=== PATIENT | male | born 1980 | race Caucasian/White ===

== ENCOUNTER 2018-10-11 09:56 | Emergency (ER) | payer MEDICAID, SELFPAY ==
[2018-08-11 14:06] VITALS: BMI 25.0
[2018-10-11 09:57] VITALS: BP 109/67; PULSE 91; RESP 16; TEMP 36.4; O2SAT 98; BMI 22.4
--- NOTE | 2018-10-11 10:33 | ED.DCSUM_ITS ---
- ER Visit Summary Date of Service: 10/11/18 Chief Complaint: Eyes are swelling History of Present Illness: The patient is a 37 M who states his eyes been itchy for the last 3 days. He denies seasonal allergies or exposure to anything new. This morning he woke up with swelling to his eyelids. He denies vision change. He denies shortness of breath or throat tightness. Physical Examination: Vital signs unremarkable. Patient sitting in a bedside chair in no acute distress. Head and neck examination was mild eyelid edema without significant erythema. There is no eye injection. Extraocular movements are intact. TMs are clear bilaterally. Heart is regular rate and rhythm. Lung sounds are clear. Abdomen is soft and nontender. No other skin rash or lesions are noted. Test Results: [] Emergency Department Course and Treatment: Symptoms are consistent with an allergic reaction but I am unable to tell the patient what he may be reacting to. He will receive IM Kenalog and p.o. Benadryl. He will be given a p rescription for Benadryl. Treatment Plan: [] Disposition: Discharge Impression: Periorbital edema secondary to allergic reaction This note was generated with [employer] dictation software. It may contain incorrect words, spelling, and punctuation that were not noted in review of the chart prior to signing ED Disposition - Plan for ED Patient: Disposition: Home or Assisted Living Instructions: ED Allergic Reaction Local Other Prescriptions: DiphenhydrAMINE [Benadryl] 50 mg PO TID PRN PRN #30 capsule PRN Reason: Allergies Referrals: Suze Olson MD [STAFF PHYSICIAN] - As Needed
[2018-10-11] MEDS: DiphenhydrAMINE 25 MG Capsule 50 MG PO (10:43)
[2018-10-11] MEDS: Triamcinolone Acetonide 40 MG/ML Vial IM (10:43)
[2018-10-11 11:05] VITALS: BP 107/78; PULSE 78; RESP 15
== END 2018-10-11 11:06 | disposition home or self-care (01) ==
PROVIDERS: Emergency Provider Emergency Medicine
DX: H02.846 Edema of left eye, unspecified eyelid (principal); H02.843 Edema of right eye, unspecified eyelid; T78.40XA Allergy, unspecified, initial encounter; X58.XXXA Exposure to other specified factors, initial encounter; R56.9 Unspecified convulsions; M19.90 Unspecified osteoarthritis, unspecified site; Z72.0 Tobacco use
CPT/HCPCS: 96372; 99282

== ENCOUNTER 2018-10-13 16:58 | Emergency (ER) | payer MEDICAID, SELFPAY ==
[2018-10-13 17:00] VITALS: BP 122/72; PULSE 99; RESP 18; TEMP 36.4; O2SAT 100; BMI 22.6
--- NOTE | 2018-10-13 17:27 | ED.DCSUM_ITS ---
- ER Visit Summary Date of Service: 10/13/18 Chief Complaint: Facial rash History of Present Illness: The patient is a 37 M who states that on Friday began to have some dry skin around his periorbital region. Friday there was swelling and some redness. He was seen in the emergency department Friday given a prescription for Benadryl as well as Kenalog. States he has been getting worse. He notes that the redness and the itching and the swelling has extended out to the bilateral ears. Vision appears unaffected. He does not have a primary care physician. He denies any new soaps or lotions or detergents. He denies any essential poison beckie. He states that he is homeless. Physical Examination: Afebrile vital signs are stable Gen: Well-nourished well-developed Head: Normocephalic atraumatic Eyes: Perrl EOMI ENT: TMs clear no rhinorrhea moist mucous membranes Neck: Supple no lymphadenopathy no JVD nontender CVS: Regular rate rhythm no murmurs normal S1-S2 Respiratory: No distress clear to auscultation bilaterally chest nontender Abdomen: Soft nontender nondistended normal bowel sounds no masses Back: Nontender Extremity: Nontender no edema Skin: Normal color There is an urticarial-like rash in the periorbital region on the forehead and the bilateral ears. The eyes show no injection of the conjunctiva. Neuro: alert orientated ?3 CN II-XII intact normal strength sensation reflexes gait cerebellar Psych: Normal affect normal mood Emergency Department Course and Treatment: Patient will be started on a tapering dose of prednisone as well as Pepcid. I am going to refer him to dermatology. Impression: Allergic/contact dermatitis of the face This note was generated with [employer] dictation software. It may contain incorrect words, spelling, and punctuation that were not noted in review of the chart prior to signing ED Disposition - Plan for ED Patient: Disposition: Home or Assisted Living Instructions: ED Dermatitis Contact Prescriptions: Prednisone 10 mg PO DAILY #63 tab Famotidine [Pepcid] 20 mg PO BID #14 tab Referrals: Ana Cristina Trujillo [NON-STAFF] - (call office to arrange early follow up)
[2018-10-13 17:48] VITALS: BP 125/78; PULSE 78; RESP 16; O2SAT 98
== END 2018-10-13 17:49 | disposition home or self-care (01) ==
PROVIDERS: Emergency Provider Emergency Medicine
DX: L23.9 Allergic contact dermatitis, unspecified cause (principal); Z59.0 Homelessness; F17.220 Nicotine dependence, chewing tobacco, uncomplicated
CPT/HCPCS: 99282

== ENCOUNTER 2018-11-15 14:19 | Emergency (ER) | payer MEDICAID, SELFPAY ==
[2018-11-15 14:20] VITALS: BP 113/70; PULSE 73; RESP 16; TEMP 36.5; O2SAT 95; BMI 21.9
--- NOTE | 2018-11-15 14:39 | ED.VIS.GEN ---
History of Present Illness Informant: Patient Onset: Weeks Context: Gradual Onset Timing: Continuous Quality: Itching Location: Arms and legs Current Severity: Moderate Maximum Severity: Severe Worsened by: Being out in the heat Relieved by: Being in the cool air conditioned environment Associated Symptoms: Denies Narrative: 37-year-old male presents with a pruritic rash to both arms and legs that is been present for over a week. Worse when he is outside and he likely has poison beckie as he has been exposed to this. He has no constitutional symptoms. He is not having any pain. The rash is not located anywhere else. Denies any new medications or soaps or lotions or detergents. Denies contact with similar rash and another person. Prior similar symptoms: Yes Recent Illness/Hospitalization: No <Oj Pereira - Last Filed: 11/15/18 14:39> <Fernando Martinez - Last Filed: 11/15/18 14:49> Chief Complaint: Rash Past Medical History Prior records reviewed: Yes Surgical History: noncontributory Smoking Status: Current every day smoker <Oj Pereira - Last Filed: 11/15/18 14:39> <Fernando Martinez - Last Filed: 11/15/18 14:49> - Allergies and Home Meds Allergies/Adverse Reactions: Allergies tree nuts Allergy (Unknown, Uncoded 11/15/18 14:20) itching Primary Care Physician: Abilio Mcdonald MD [NON-STAFF] - Care Physician,No Primary [Primary Care Provider] - Review of Systems All systems negative except as indicated Skin: Reports: Rash <Oj Pereira - Last Filed: 11/15/18 14:39> Physical Exam Vital Signs/Narrative: Vital Signs Temp Pulse Resp BP Pulse Ox 11/15/18 14:20 97.7 F L 73 16 113/70 95 Inital Vital Signs reviewed: Yes General: Well nourished, Well developed, No Acute Distress Head: Normocephalic, Atraumatic Eyes: Perrl, EOMI ENT: Moist mucous membranes Neck: Supple, Nontender Cardiovascular: Regular rate, Regular rhythm Respiratory: No distress, CTA bilaterally, Chest nontender Abdomen: Soft, Nontender, Nondistended, Normal bowel sounds, No masses Back: Nontender Extremities: Nontender, No edema Skin: Normal color, Rash - Maculopapular rash both arms and legs, spares palms and soles, spares mucous membranes, no petechiae or purpura, no pustules or vesicles. Neurological: Alert, Oriented x3 <Oj Pereira - Last Filed: 11/15/18 14:39> Vital Signs/Narrative: Vital Signs Temp Pulse Resp BP Pulse Ox 11/15/18 14:20 97.7 F L 73 16 113/70 95 <Fernando Martinez - Last Filed: 11/15/18 14:49> Diagnostic/Tx/Re-eval - Medical Decision Making Rash on extremities. I am about with this patient with the physician export sales assistant Oj. Physical exam rash consistent with contact dermatitis on his arms and legs. Otherwise exam unremarkable. Diagnosis: Acute contact dermatitis secondary to poison beckie Prednisone daily. <Fernando Martinez - Last Filed: 11/15/18 14:49> ED Disposition <Oj Pereira - Last Filed: 11/15/18 14:39> <Fernando Martinez - Last Filed: 11/15/18 14:49> - Plan for ED Patient: Disposition: Home or Assisted Living Diagnosis: Contact dermatitis Instructions: DERMATITIS, Non-Specific Prescriptions: Prednisone 10 mg PO DAILY #63 tab Prescription Printed Referrals: Care Physician,No Primary [Primary Care Provider] - Abilio Mcdonald MD [NON-STAFF] -
--- NOTE | 2018-11-15 14:58 | ED.RN ---
during discharge patient states this is messed up, i want bloodwork. the doctor thinks its an allergic reaction and i think its a blood infection. i need an antibiotic. emotional support and education given. Pt denies wanting to wait and talk to again. Pt refuses the prednisone and refuses to take the prescription for prednisone. made aware.
== END 2018-11-15 15:00 | disposition home or self-care (01) ==
LOC: ED 14:53
PROVIDERS: Emergency Provider Physician Assistant Medical
DX: L23.7 Allergic contact dermatitis due to plants, except food (principal); F17.200 Nicotine dependence, unspecified, uncomplicated
CPT/HCPCS: 99282

== ENCOUNTER 2019-01-27 08:47 | Emergency (ER) | payer MEDICAID, SELFPAY ==
[2019-01-27 08:48] VITALS: BP 104/63; PULSE 86; RESP 14; TEMP 36.5; O2SAT 99; BMI 22.5
--- NOTE | 2019-01-27 09:00 | ED.VIS.LOWEX ---
History of Present Illness Chief Complaint: Lower Extremity Injury Detail of Chief Complaint: Left ankle injury Informant: Patient Occurred: Yesterday Mechanism/Context: - - Stepped in a hole and rolled his ankle Onset: Yesterday Context: Sudden Onset Quality of Pain: Aching, Throbbing Current Severity: Moderate Maximum Severity: Moderate Narrative: Patient presents with left ankle injury after stepping in a hole yesterday. He has been able to walk on it, but does have antalgic gait. He denies prior ankle or foot fracture. He denies any other injury from his fall. - Past Medical History (1) Scoliosis Status: Chronic (2) Arthritis Status: Chronic Past Medical History - Allergies and Home Meds Allergies/Adverse Reactions: Allergies tree nuts Allergy (Unknown, Uncoded 01/27/19 08:48) itching Primary Care Physician: Care Physician,No Primary [Primary Care Provider] - Prior records reviewed: Yes Past Medical History: - - Reviewed Surgical History: noncontributory Smoking Status: Current every day smoker Review of Systems General: Denies: Chills, Fever Eyes: Denies: Visual changes - bilaterally ENT: Denies: Bilateral ear pain Cardiovascular: Denies: Chest pain Respiratory: Denies: Dyspnea, Cough Gastrointestinal: Denies: Abdominal pain, Nausea, Vomiting, Diarrhea Musculoskeletal: Reports: Arthralgias, Extremity Pain Skin: Denies: Rash Neurological: Denies: Parasthesia Hematologic: Denies: Easy bruising, Easy bleeding Allergy: Denies: Uticaria Physical Exam Vital Signs/Narrative: Vital Signs Temp Pulse Resp BP Pulse Ox 01/27/19 08:48 97.7 F L 86 14 104/63 99 Inital Vital Signs reviewed: Yes - Extremity Exam Left Ankle: - - Edema and ecchymosis of the lateral malleolus. No tenderness over the fifth metatarsal. No tenderness of the calcaneus. Patient has no tenderness at the knee or proximal fibula. Strong pulses are noted. Normal cap refill. General: Well nourished, Well developed Head: Normocephalic ENT: No Trauma Cardiovascular: Regular rate, Regular rhythm Respiratory: No distress, CTA bilaterally Abdomen: Soft, Nontender Back: Nontender Skin: - - Ecchymosis as noted above. Neurological: Alert, Oriented x3 Psychological: Normal affect Diagnostic/Tx/Re-eval Impressions Ankle X-Ray 01/27/19 09:15 IMPRESSION: No fracture or dislocation. Lateral soft tissue swelling consistent with ligamentous injury. Electronically Signed: Morales Oleary MD at 9:32 EDT Tel , Service support , 01/27/19 09:15 Ankle min 3 Views [RAD] Stat - Medical Decision Making She was ordered a shot of Toradol, but x-ray was completed before the medication was given and he declined it. X-ray results are discussed with him. He will be given an air stirrup splint. He declines crutches or pain meds for home. ED Disposition - Plan for ED Patient: Disposition: Home or Assisted Living Diagnosis: Ankle sprain Instructions: Sprain, Ankle, with X-Ray Referrals: Lynnette Luna DO [STAFF PHYSICIAN] - As Needed
--- NOTE | 2019-01-27 09:15 | RAD_ITS ---
STUDY: X-RAY - LEFT ANKLE REASON FOR EXAM: Male, 38 years old. Ankle pain and swelling TECHNIQUE: 3 view(s) of the ankle. COMPARISON: None. FINDINGS: Normal visualized distal tibia and fibula. Normal medial and lateral malleoli. Normal tibiotalar articulation and ankle mortise. Normal visualized talus and calcaneus. The visualized subtalar, talonavicular, calcaneocuboid and tarsal articulations are normal. Lateral soft tissue swelling consistent with ligamentous injury. RAD/Ankle min 3 Views IMPRESSION: No fracture or dislocation. Lateral soft tissue swelling consistent with ligamentous injury. Electronically Signed: Morales Oleary MD at 9:32 EDT Tel , Service support ,
--- NOTE | 2019-01-27 09:24 | ED.RN ---
PT HOMELESS AND LIVING ON THE STREETS. DOES NOT FEEL SAFE
--- NOTE | 2019-01-27 09:36 | ED.RN ---
pt refused toradol. dr shelby. unable to chart against medication due to computer difficulties at this time
--- NOTE | 2019-01-27 10:10 | ED.RN ---
pt refused air cast stating.i had to wait 15 minutes. pt refused dc instructions. pt advised if problems persist to follow up with dr medrano. pt states no way. this rn asks if there is anything we can do to help. pt states no and leaves department
== END 2019-01-27 10:14 | disposition home or self-care (01) ==
PROVIDERS: Emergency Provider Emergency Medicine
DX: S93.402A Sprain of unspecified ligament of left ankle, initial encounter (principal); W17.2XXA Fall into hole, initial encounter; Y93.9 Activity, unspecified; Y92.9 Unspecified place or not applicable; Y99.9 Unspecified external cause status; M41.9 Scoliosis, unspecified; M19.90 Unspecified osteoarthritis, unspecified site; F17.200 Nicotine dependence, unspecified, uncomplicated
CPT/HCPCS: 73610; 99282

== ENCOUNTER 2019-03-02 22:03 | Emergency (ER) | payer MEDICAID, SELFPAY ==
[2019-03-02 22:04] VITALS: BP 115/64; PULSE 81; RESP 17; TEMP 36.5; O2SAT 100; BMI 20.9
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
--- NOTE | 2019-03-02 23:12 | ED.DEP ---
ED Disposition - Plan for ED Patient: Instructions: FRACTURE, Hand (Closed) Referrals: Pardeep Acosta MD [STAFF PHYSICIAN] -
[2019-03-02 23:45] VITALS: BP 123/82; PULSE 82; RESP 14; O2SAT 98
== END 2019-03-02 23:46 | disposition home or self-care (01) ==
LOC: ED 22:47
PROVIDERS: Emergency Provider Emergency Medicine
DX: S62.364A Nondisplaced fracture of neck of fourth metacarpal bone, right hand, initial encounter for closed fracture (principal); Y04.2XXA Assault by strike against or bumped into by another person, initial encounter; Y93.89 Activity, other specified; Y92.89 Other specified places as the place of occurrence of the external cause; Y99.8 Other external cause status
CPT/HCPCS: 73130; 99282

== ENCOUNTER 2019-03-03 13:00 | Emergency (ER) | payer MEDICAID, SELFPAY ==
[2019-03-02 22:04] VITALS: BMI 20.9
[2019-03-03 13:01] VITALS: BP 110/49; PULSE 84; RESP 16; TEMP 36.6; O2SAT 99; BMI 21.9
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
--- NOTE | 2019-03-03 13:19 | ED.DEP ---
ED Disposition - Plan for ED Patient: Disposition: Home or Assisted Living Instructions: FRACTURE, Hand (Closed) Referrals: Lynnette Luna, [STAFF PHYSICIAN] - As soon as possible Additional Instructions: Ice and elevate your right hand to the swelling. Naprosyn for pain. Keep the splint dry and clean. Follow-up with orthopedic Dr. Lynnette Luna for casting of your right hand and further evaluation.
[2019-03-03 13:33] VITALS: BP 110/49; PULSE 84; RESP 18
== END 2019-03-03 13:38 | disposition home or self-care (01) ==
LOC: ED 13:36
PROVIDERS: Emergency Provider Emergency Medicine
DX: S62.394A Other fracture of fourth metacarpal bone, right hand, initial encounter for closed fracture (principal); W51.XXXA Accidental striking against or bumped into by another person, initial encounter; Y93.9 Activity, unspecified; Y92.9 Unspecified place or not applicable; Z72.0 Tobacco use
CPT/HCPCS: 29125; 99282

== ENCOUNTER → 2019-03-24 09:44 | Outpatient (CLI) | payer MEDICAID, SELFPAY ==
[2019-03-24 08:51] VITALS: BMI 21.9
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
== END ==
PROVIDERS: Family Provider Internal Medicine; PCP Internal Medicine; Referring Provider Nurse Practitioner Family; Visit Provider Nurse Practitioner Family
DX: S62.304A Unspecified fracture of fourth metacarpal bone, right hand, initial encounter for closed fracture (principal); X58.XXXA Exposure to other specified factors, initial encounter; Y93.9 Activity, unspecified; Y92.9 Unspecified place or not applicable; Y99.9 Unspecified external cause status
CPT/HCPCS: 73130

== ENCOUNTER 2019-12-18 17:52 | Emergency (ER) | payer MEDICAID, SELFPAY ==
[2019-03-26 08:54] VITALS: BMI 21.9
[2019-12-18 17:53] VITALS: BP 116/78; PULSE 74; RESP 18; TEMP 36.3; O2SAT 96; BMI 22.6
--- NOTE | 2019-12-18 18:55 | RAD_ITS ---
STUDY: X-RAY CHEST REASON FOR EXAM: Male, 39 years old. Cough TECHNIQUE: Single AP portable view of the chest. COMPARISON: None. FINDINGS: The lungs are clear and expanded. There is no demonstrated pleural abnormality. Normal size heart. Normal mediastinum and john. Normal visualized pulmonary arteries. Normal visualized aortic arch and descending thoracic aorta. Normal visualized thoracic spine. Normal visualized ribs, clavicles, and shoulders. There is no demonstrated abnormality of the visualized soft tissue structures of the upper abdomen. RAD/Chest 1 View (Portable) IMPRESSION: Normal x-ray examination of the chest. Electronically Signed: Christiano Castro MD at 19:36 EDT , Service support ,
--- NOTE | 2019-12-18 20:18 | ED.DCSUM_ITS ---
- ER Visit Summary Date of Service: 12/18/19 Chief Complaint: Cough History of Present Illness: The patient is a 39 M with a cough. It feels like a chest cold. It started with a runny nose and now he has a dry cough. Denies fevers. Smoker. Physical Examination: Afebrile and vital signs unremarkable. Alert and oriented. No acute distress. Lungs clear. Heart regular. Skin appears normal. Test Results: Chest x-ray negative. Patient declined COVID 19 testing. Emergency Department Course and Treatment: I advised chest x-ray and COVID testing. Patient declined COVID testing. Chest x-ray was unremarkable. Before I could speak with him, he had left the ED. Treatment Plan: As above Disposition: Elopement prior to official discharge Impression: Bronchitis This note was generated with [employer] dictation software. It may contain incorrect words, spelling, and punctuation that were not noted in review of the chart prior to signing ED Disposition - Plan for ED Patient: Referrals: Aroldo Solares MD [Primary Care Provider] -
--- NOTE | 2019-12-18 20:20 | ED.DEP ---
ED Disposition - Plan for ED Patient: Instructions: ED Bronchitis Asthmatic Referrals: Aroldo Solares MD [Primary Care Provider] -
== END 2019-12-18 20:19 | disposition home or self-care (01) ==
LOC: ED 18:54
PROVIDERS: Emergency Provider Emergency Medicine; PCP Internal Medicine
DX: J40 Bronchitis, not specified as acute or chronic (principal); M19.90 Unspecified osteoarthritis, unspecified site; Z72.0 Tobacco use
CPT/HCPCS: 71045; 99282

== ENCOUNTER 2020-04-23 21:01 | Emergency (ER) | payer MEDICAID, SELFPAY ==
[2020-04-23 21:02] VITALS: BP 123/79; PULSE 77; RESP 16; TEMP 36.3; O2SAT 100; BMI 22.4
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
[2020-04-23 21:58] VITALS: BP 123/79; PULSE 77; RESP 16; O2SAT 100
== END 2020-04-23 21:59 | disposition home or self-care (01) ==
PROVIDERS: Emergency Provider Emergency Medicine
DX: S02.2XXA Fracture of nasal bones, initial encounter for closed fracture (principal); R04.0 Epistaxis; Y04.2XXA Assault by strike against or bumped into by another person, initial encounter; Y93.9 Activity, unspecified; Y92.9 Unspecified place or not applicable; Y99.9 Unspecified external cause status; F17.200 Nicotine dependence, unspecified, uncomplicated
CPT/HCPCS: 70486; 99282

== ENCOUNTER 2020-07-11 13:33 | Emergency (ER) | payer MEDICAID, SELFPAY ==
[2020-07-11 13:33] VITALS: BP 121/68; PULSE 79; RESP 18; TEMP 36.3; O2SAT 99; BMI 21.7
[2020-07-11 14:01] LABS: Mucous, Urine 0 SEEN /hpf (<or=2+); Red Blood Cells-Urine 0 SEEN /hpf (0-5)
[2020-07-11 14:03] LABS: Color, Urine Yellow (Yellow); Glucose, Dipstick Normal (Normal); Ketone-Dipstick Negative (Negative); Leukocyte Esterase-Dipstick 25 /ul (Negative); Nitrite-Dipstick Negative (Negative); Occult Blood-Urine Negative /ul (Negative); Protein-Dipstick Negative (Negative); Specific Gravity, Urine 1.015 (1.002-1.030); Urine Bilirubin Dipstick Negative (Negative); Urine Clarity Sl. Cloudy (Clear); Urine Urobilinogen Normal (Normal)
[2020-07-11 14:10] LABS: Squamous Epithelial Cells - UA 0-5 SEEN /hpf (0-5); White Blood Cells 0-5 SEEN /hpf (0-5)
[2020-07-11 14:11] LABS: Amorphous Sediment 1+ URATE; Bacteria 1+ /hpf (None Seen)
--- NOTE | 2020-07-11 14:23 | ED.VISSUMM ---
- ER Visit Summary Date of Service: 07/11/20 Chief Complaint: Hematuria History of Present Illness: The patient is a 39 M no significant past medical history. No prior urologic surgery. Today he noticed he had small amount of blood in his urine. No difficulty urinating. No dysuria. No fever or chills. He is on no medications and no blood thinners. He actually had this happen 1 other time but never had it evaluated. He denies any other complaints. He is on no blood thinners. He has had no bloody noses, melena or bruising. Otherwise he says he feels fine. Physical Examination: Appearing middle-aged male. Accompanied by his significant other. Vital signs stable afebrile. HEENT exam unremarkable. Neck nontender no lymphadenopathy. Lungs clear to auscultation bilaterally. Heart regular rhythm rate about 80 no murmur. Abdomen soft nontender normal bowel sounds no peritoneal signs. External exam normal. Circumcised male. No lesions. No gross blood. Testicles nontender no masses. No inguinal lymphadenopathy. Moving all 4 extremities. No edema. No bruising. Back nontender. Neurologically is awake and alert with no focal motor deficits. Test Results: Urinalysis shows no acute abnormality. No nitrates. No white cells. No red cells. And only 1+ bacteria. I will send a culture but there is no signs of infection on this at this time. Emergency Department Course and Treatment: Exam urinating normally. Complaining of some mild blood in his urine. His urinalysis is basically unremarkable. Treatment Plan: Outpatient follow-up with local urologist for further evaluation of hematuria. Disposition: Discharge Impression: Acute hematuria of uncertain etiology This note was generated with [employer] dictation software. It may contain incorrect words, spelling, and punctuation that were not noted in review of the chart prior to signing ED Disposition - Plan for ED Patient: Referrals: Care Physician,No Primary [Primary Care Provider] -
--- NOTE | 2020-07-11 14:26 | ED.DEP ---
ED Disposition - Plan for ED Patient: Disposition: Home or Assisted Living Instructions: ED Hematuria Referrals: Alfonso Morgan MD [STAFF PHYSICIAN] - As soon as possible Additional Instructions: Call and follow-up with Dr. Blayne Morgan's office a local urologist. Plenty of water. If you are unable to urinate return.
== END 2020-07-11 14:37 | disposition home or self-care (01) ==
LOC: ED 14:34
PROVIDERS: Emergency Provider Emergency Medicine
DX: R31.9 Hematuria, unspecified (principal); Z72.0 Tobacco use
CPT/HCPCS: 81001; 87086; 99282

== ENCOUNTER 2022-04-14 13:58 | Emergency (ER) | payer MEDICAID, SELFPAY ==
[2022-04-14 13:59] VITALS: BP 116/62; PULSE 78; RESP 18; TEMP 36.6; O2SAT 100; BMI 24.3
--- NOTE | 2022-04-14 14:13 | ED.VIS.GI ---
HPI HPI - GI History of Present Illness Chief Complaint: Abd Pain Informant: patient Narrative Narrative: Patient states that his stomach gurgles and growls every time he eats something. This has been going on for 5 years. He has tried to change types of foods he eats but no other treatment. He does not have a primary physician to see. He tried punching his abdomen to see if that helped and it did not. He has no prior surgeries. He has not actually getting any abdominal pain. He denies diarrhea constipation blood in the stool or change in stool colors. He states he maybe has a couple cups of coffee now and then but is not a big stimulant drinker. No alcohol. No problems with milk that he knows of. He does not have sour acid taste in his mouth. He has not tried any antacids. He came here today because he figures after 5 years of having this something has to be wrong. He states 1 time he was seen in urgent care and they did an x-ray but did not see anything. He has had no other evaluation. He is a smoker and was counseled to quit. [facility] Medical History Arthritis Back pain History of pneumonia History of seizures Home Medications dicyclomine 20 mg tablet 20 mg PO TID PRN cramps #14 tabs 04/14/22 [Rx Last Taken Unknown] esomeprazole magnesium 20 mg capsule,delayed release (Nexium) 20 mg PO DAILY #30 caps 04/14/22 [Rx Last Taken Unknown] Allergy/AdvReac Type Severity Reaction Status Date / Time tree nut Allergy Unknown Itching Verified 04/14/22 14:00 Family History Other Unknown family medical history Social History Smoking Status: Current every day smoker tobacco type: cigarettes Tobacco: How many years used: 16 Smokeless tobacco user: chewing tobacco alcohol intake: never substance use type: does not use what type of physical activity do you participate in: none ROS ROS ED Constitutional Constitutional ED: Denies fever(s) ENT ENT ED: Denies rhinorrhea or sore throat Cardiovascular Cardiovascular: Denies chest pain or palpitations Respiratory/Chest Respiratory/Chest: Denies cough or dyspnea Gastrointestinal Gastrointestinal: Reports other Details: See history of present illness peer ; Denies abdominal pain, constipation, diarrhea, melena, nausea or vomiting Genitourinary Genitourinary ED: Denies dysuria, hematuria or urinary frequency Musculoskeletal Musculoskeletal: Denies arthralgias, back pain or neck pain Integumentary Denies rash Neurologic Neurologic: Denies paresthesias Endocrine Endocrinology: Denies polydipsia or polyuria Hematologic/Lymphatic Hematologic/Lymphatic: Denies easy bleeding or easy bruising Allergic/Immunologic Allergic/Immunologic ED: Denies urticaria EXAM Physical Exam Const Vital Signs: 04/14/22 13:59 Temperature 97.8 F Temperature Source Temporal Pulse Rate 78 Respiratory Rate 18 Blood Pressure 116/62 Blood Pressure Mean 80 Pulse Ox 100 Oxygen Delivery Method Room Air Positive well nourished and well developed General Appearance ED: well developed and NAD HEENT Reports moist mucous membranes HEENT Narrative: No petechiae. Mucous membranes not dry. No thrush. Eyes EOMs intact bilaterally Neck supple and no JVD Resp normal respiratory effort and clear to auscultation bilaterally Resp Narrative: No pain with a deep breath. Cardio regular rate, regular rhythm and no murmurs GI non-tender, non-distended and no masses GI Narrative: Abdomen is thin nondistended. Bowel sounds sound normal at this time. He states currently his stomach is not gurgling and growling. He does have some abrasions on the left side of his umbilicus that he states is from rubbing his abdomen earlier to try to make the gurgling go away. There is no hematoma. But despite his symptoms his abdomen is actually quite benign. I do not even get any epigastric or right upper quadrant tenderness. Certainly no rebound guarding or mass. I feel no hernia. Back/Spine no CVA tenderness Back/Spine Narrative: No CVA tenderness or rash. Extremity General Extremety ED: Negative for edema or tenderness General Extremity: Negative for edema Neuro Sensorium / Orientation: alert Psych mental status grossly normal Skin Skin Narrative: Abrasions to abdomen as above. MDM MDM MDM Narrative Medical decision making narrative: I explained to the patient that he has had symptoms for 5 years. His exam is quite benign at this time. He does not have pain. He has never had vomiting. No diarrhea. He is able to eat and drink. He is not losing or gaining weight. I do not think x-rays, CT, ultrasound or labs are good to find the diagnosis for this. I do not think those are needed at this time acutely. We will start him on proton pump inhibitor. He most likely has increased borborygmi from gastric irritation. We also discussed stopping smoking, decreasing caffeine or tea. I will refer him to both primary physician and epic cupid specialists. We discussed returning if he develops pain, fevers, vomiting, abdominal distention or other concerns. Discharge Plan Triage Chief Complaint: Abd Pain ED Provider: Florencio Louis Dx/Rx/DC Orders Clinical Impression: Borborygmi, Irritable bowel Instructions: ED Gastritis (Adult) Prescriptions: New esomeprazole magnesium [Nexium] 20 mg capsule,delayed release(DR/EC) 20 mg PO DAILY Qty: 30 0RF dicyclomine 20 mg tablet 20 mg PO TID PRN (Reason: cramps) Qty: 14 0RF Primary Care Provider: Care Physician,No Primary Referrals: Genny Briceno MD [Med Staff - Dials Inspector] - As soon as possible Devon Borrero DO [Med Staff - Active Staff] - As soon as possible (Call Friday to initiate an appointment.) Care Physician,No Primary [Primary Care Provider] - Disposition Disposition: Home, Self Care
[2022-04-14] MEDS: Pantoprazole Sodium 20 MG Tablet PO (14:26)
[2022-04-14] MEDS: Dicyclomine 10 MG Capsule 20 MG PO (14:26)
== END 2022-04-14 14:27 | disposition home or self-care (01) ==
PROVIDERS: Emergency Provider Emergency Medicine; Visit Provider Emergency Medicine
DX: K58.9 Irritable bowel syndrome, unspecified (principal); F17.210 Nicotine dependence, cigarettes, uncomplicated
CPT/HCPCS: 99283